=== PATIENT | male | born 1965 | race Caucasian/White ===

== ENCOUNTER → 2017-10-13 | Outpatient (CLI) | payer BC ==
[~2017-10-13] MED LIST: ASPCH81X PO; ATOR10TA82 PO; MULT-506 PO; OXYC7.5T65 PO; TAMS0.4C38 PO; glucosamine PO
--- NOTE | 2017-10-13 12:05 | DIAGNOSTIC IMAGING REPORT ---
CHEST 2 VIEWS ROUTINE CLINICAL HISTORY: NEPHROLITHIASIS PREOPERATIVE CHEST COMPARISON STUDY: No previous studies for comparison. FINDINGS: The cardiac and mediastinal contours are normal. There is no failure. There is no focal pulmonary consolidation. There is a small right pleural effusion.[ IMPRESSION: Small right pleural effusion. No evidence of focal pulmonary consolidation. Electronically signed by: Jaswant Onofre M.D. 10/13/2017 12:03 PM Dictated Date/Time: 10/13/2017 12:02 PM
--- NOTE | 2017-10-13 12:47 | DIAGNOSTIC IMAGING REPORT ---
[facility] CLINICAL HISTORY: NEPHROLITHIASIS COMPARISON STUDY: CT scan dated 08/18/2017 FINDINGS: There is an 8 mm upper pole left renal calculus. There are 2 lower pole left renal calculi measuring 6 mm in aggregate. There is no pathologic bowel dilatation. No right renal calculi are visualized. There is 8 mm calcification projected over the left hemisacrum. A mid left ureteral calculus cannot be excluded. IMPRESSION: 1. Left-sided nephrolithiasis 2. 8mm calcification projected over the left sacrum at the inferior SI joint level. This could represent a mid left ureteral calculus Electronically signed by: Jaswant Onofre M.D. 10/13/2017 12:46 PM Dictated Date/Time: 10/13/2017 12:44 PM
[2017-10-13 13:23] LABS: BASO % 0.3 %; BASO ABS # 0.02 K/uL (0-0.2); EOS % 2.9 %; HEMOGLOBIN 15.4 g/dL (14.0-18.0); IG# 0.01 K/uL (0.00-0.02); LYMPH % 25.9 %; MEAN CELL VOLUME 84.8 fL (80-100); MEAN CORPUSCULAR HEMOGLOBIN 29.7 pg (25-34); MEAN PLATELET VOLUME 10.2 fL (7.4-10.4); MONO % 7.2 %; NEUT % 63.6 %; NEUT ABS # 4.41 K/uL (1.4-6.5); PLATELET COUNT 170 K/uL (130-400); RED CELL DISTRIBUTION WIDTH CV 12.7 % (11.5-14.5); RED CELL DISTRIBUTION WIDTH SD 39.4 fL (36.4-46.3); WHITE BLOOD COUNT 6.94 K/uL (4.8-10.8)
[2017-10-13 14:17] LABS: BLOOD UREA NITROGEN 13 mg/dl (7-18); CARBON DIOXIDE 30 mmol/L (21-32); CREATININE 1.06 mg/dl (0.60-1.40); POTASSIUM 4.1 mmol/L (3.5-5.1); SODIUM 139 mmol/L (136-145)
== END | disposition home or self-care (01) ==
LOC: C.RAD 11:14
PROVIDERS: ATTEND Urology
DX: Z01.818 Encounter for other preprocedural examination (principal); N20.0 Calculus of kidney

== ENCOUNTER → 2017-10-15 | Day surgery (SDC) | payer BC ==
[2017-10-13 13:55] VITALS: Ht 190.5 cm; Wt 115.9 kg
[~2017-10-15] VITALS: Ht 190.5 cm; Wt 115.9 kg
[~2017-10-15] MED LIST changes: +ATROPINE SULFATE 0.1 MG/ML 5ML SYR IV PRN; +CIPROFLOXACIN 400MG / D5W IV SCH; +DEXAMETHASONE SOD INJ 4 MG/ML VIAL ONE; +EpHEDrine SULFATE INJ 50 MG/ML AMP IV PRN; +FENTANYL CITRATE INJ 50 MCG/1 ML 2 ML VIAL IV PRN; +FENTANYL CITRATE INJ 50 MCG/1 ML 2 ML VIAL ONE; +HYDROmorphone INJ 1 MG/ML SYR IV PRN; +LACTATED RINGER'S 1000ML 1,000 ML IV SCH; +LIDOCAINE HCL 2% 2 ML VIAL (20MG/ML) ONE; +MIDAZOLAM HCL 1 MG/ML 2ML VIAL ONE; -MULT-506 PO; +ONDANSETRON INJ 2 MG/ML 2 ML VIAL IV PRN; +ONDANSETRON INJ 2 MG/ML 2 ML VIAL ONE; +OXYCODONE/ACETAMINOPHEN 5-325 TAB PO PRN; +PHENYLEPHRINE 100MCG/ML 5ML SYR IV PRN; +PROMETHAZINE HCL INJ 12.5 MG in SODIUM CHLORIDE 0.9% 50ML 50 ML IV PRN; +PROPOFOL IV EMULSION 10 MG/ML 20 ML VIAL ONE; -glucosamine PO
--- NOTE | 2017-10-15 11:30 | History & Physical Bridge Note ---
H&P Re-Evaluation Bridge Note: I have examined the patient, reviewed the History & Physical and in the interval since the performance of the History & Physical I have noted the following changes of clinical significance: No changes noted
--- NOTE | 2017-10-15 12:44 | Discharge Instructions ---
Discharge Instructions Date of Service Oct 15, 2017. Admission Reason for Admission: Stones Discharge Discharge Diagnosis / Problem: Left ureteral stones s/p ESWL Discharge Goals Goal(s): Decrease discomfort, Improve disease control, Therapeutic intervention Activity Recommendations Activity Limitations: as noted below Lifting Limitations: no more than 25 pounds, gradually increase as tolerated Exercise/Sports Limitations: rest today, gradually increase as tolerated May Resume Sexual Activity: when tolerated Shower/Bathe: no limitations Driving or Machine Use: resume 1 day after discharge . Instructions / Follow-Up Instructions / Follow-Up Follow-up in office as scheduled with [facility] Xray before visit. Current Hospital Diet Patient's current hospital diet: Discharge Diet Recommended Diet: Regular Diet (good fluid intake) Procedures Procedures Performed: Left ureteral shockwave lithotripsy Pending Studies Studies pending at discharge: yes List of pending studies: [facility] Xray at follow-up visit Medical Emergencies . Who to Call and When: Medical Emergencies: If at any time you feel your situation is an emergency, please call 911 immediately. . Non-Emergent Contact Non-Emergency issues call your: Urologist Call Non-Emergent contact if: you have a fever, temperature is above 101, your pain is not controlled, your pain is worsening, your pain is unusual for you, your pain is concerning you, you have any medication questions . . "Provider Documentation" section prepared by Misha Thomas. . [place] Drug Monitoring Program Search Results: patient reviewed within database, see additional documentation (last Rx Feb 2017 )
--- NOTE | 2017-10-15 13:24 | [facility] Post Operative Brief Note ---
Immediate Operative Summary Operative Date Oct 15, 2017. Pre-Operative Diagnosis Left Ureteral Stone Post-Operative Diagnosis Same Procedure(s) Performed Left Extracorporeal Shock Wave Lithotripsy Ureteral Calculus Surgeon Dr. Joe Thomas Street Worker Surgeon(s) None Estimated Blood Loss 0 Findings Consistent with Post-Op Diagnosis Specimens None Drains None Anesthesia Type General Complication(s) none Disposition Accompanied Pt To Recover: no Disposition: Recovery Room / PACU
--- NOTE | 2017-10-15 13:53 | OPERATIVE REPORT ---
DATE OF OPERATION: 10/15/2017 PREOPERATIVE DIAGNOSES: Left ureteral stones, left renal stones. POSTOPERATIVE DIAGNOSES: Same. PROCEDURE: Left ureteral extracorporeal shock wave lithotripsy. SURGEON: Misha Thomas MD. WAX BLEACHER: None. ANESTHESIA: General anesthesia with laryngeal mask. COMPLICATIONS: None. FINDINGS: Good stone fragmentation of ureteral stones on fluoroscopic examination intraoperatively. DESCRIPTION OF PROCEDURE: The patient was brought to the lithotripsy suite. He was correctly identified, and the stone was visualized on his most recent x-rays. After the correct timeout was performed, the patient was positioned over the therapy head. An adequate level of anesthesia was administered. The extracorporeal shockwave lithotripsy treatment was then commenced. Please see the [facility] sheet for complete treatment summary. After completion of the procedure, the patient was taken to the recovery room in stable condition. I attest to the content of the Intraoperative Record and any orders documented therein. Any exception s are noted below.
--- NOTE | 2017-10-15 14:06 | Anesthesia Progress Nt - [facility] ---
Anesthesia Post Op Note Date & Time Oct 15, 2017 at 14:05 Vital Signs Pain Intensity: 0 Vital Signs Past 12 Hours Date Time Temp Pulse Resp B/P (MAP) Pulse Ox O2 Delivery O2 Flow Rate FiO2 10/15/17 13:59 36.3 99 Room Air 10/15/17 13:57 56 4 10/15/17 13:57 55 4 100 10/15/17 13:56 137/86 10/15/17 13:52 56 0 10/15/17 13:52 55 0 100 10/15/17 13:51 135/89 10/15/17 13:47 58 0 10/15/17 13:47 57 0 99 10/15/17 13:46 147/87 10/15/17 13:42 64 10 10/15/17 13:42 63 10 100 10/15/17 13:41 142/94 10/15/17 13:39 151/93 10/15/17 13:37 36.2 66 12 151/93 99 Mask 6 10/15/17 10:55 36.3 61 18 134/92 (106) 100 Room Air Notes Mental Status: alert / awake / arousable, participated in evaluation Pt Amnestic to Procedure: Yes Nausea / Vomiting: adequately controlled Pain: adequately controlled Airway Patency, RR, SpO2: stable & adequate BP & HR: stable & adequate Hydration State: stable & adequate Anesthetic Complications: no major complications apparent
[2017-10-15 14:22] VITALS: BP 124/81; PULSE 78; TEMP 36.3; O2SAT 96
== END | disposition home or self-care (01) ==
LOC: X.SURG 10:49
PROVIDERS: ATTEND Urology
DX: N20.0 Calculus of kidney (principal); N20.1 Calculus of ureter; E66.9 Obesity, unspecified; Z79.82 Long term (current) use of aspirin; Z79.899 Other long term (current) drug therapy; Z68.32 Body mass index [BMI] 32.0-32.9, adult

== ENCOUNTER → 2017-10-22 | Outpatient (CLI) | payer BC ==
[~2017-10-22] MED LIST changes: -ATROPINE SULFATE 0.1 MG/ML 5ML SYR IV PRN; -CIPROFLOXACIN 400MG / D5W IV SCH; -DEXAMETHASONE SOD INJ 4 MG/ML VIAL ONE; -EpHEDrine SULFATE INJ 50 MG/ML AMP IV PRN; -FENTANYL CITRATE INJ 50 MCG/1 ML 2 ML VIAL IV PRN; -FENTANYL CITRATE INJ 50 MCG/1 ML 2 ML VIAL ONE; -HYDROmorphone INJ 1 MG/ML SYR IV PRN; -LACTATED RINGER'S 1000ML 1,000 ML IV SCH; -LIDOCAINE HCL 2% 2 ML VIAL (20MG/ML) ONE; -MIDAZOLAM HCL 1 MG/ML 2ML VIAL ONE; -ONDANSETRON INJ 2 MG/ML 2 ML VIAL IV PRN; -ONDANSETRON INJ 2 MG/ML 2 ML VIAL ONE; -OXYCODONE/ACETAMINOPHEN 5-325 TAB PO PRN; -PHENYLEPHRINE 100MCG/ML 5ML SYR IV PRN; -PROMETHAZINE HCL INJ 12.5 MG in SODIUM CHLORIDE 0.9% 50ML 50 ML IV PRN; -PROPOFOL IV EMULSION 10 MG/ML 20 ML VIAL ONE
--- NOTE | 2017-10-22 08:58 | DIAGNOSTIC IMAGING REPORT ---
[facility] HISTORY: Follow-up study in a patient with nephrolithiasis. Recent lithotripsy. N20.0 [id number] COMPARISON: [facility] 10/13/2017, CT 08/18/2017 FINDINGS: The bowel gas pattern is non-obstructive. There is no organomegaly. Left nephrolithiasis redemonstrated with composite calculi about the inferior pole left kidney measuring up to 8 mm. 10 mm unchanged calcification about the superior pole left kidney. No right nephrolithiasis or ureteral calculi identified. Calcifications of the pelvis suggest probable phleboliths. Previously noted calcification overlying the left sacrum is not definitively seen. No pneumoperitoneum or pneumatosis. No fracture. IMPRESSION: Unchanged left nephrolithiasis without ureteral calculi identified. Electronically signed by: Angel Marques M.D. 10/22/2017 8:57 AM Dictated Date/Time: 10/22/2017 8:54 AM
== END | disposition home or self-care (01) ==
LOC: C.RAD 08:20
PROVIDERS: ATTEND Urology
DX: N20.0 Calculus of kidney (principal)

== ENCOUNTER → 2017-10-25 | Outpatient (CLI) | payer BC | END | disposition home or self-care (01) | LOC: C.LABSPEC 17:32 | PROVIDERS: ATTEND Urology | DX: N20.0 Calculus of kidney (principal) ==